=== PATIENT | male | born 2000 | race Caucasian/White ===

== ENCOUNTER 2020-01-23 15:26 | Emergency (ER) | payer OTHER ==
[~2020-01-23] VITALS: Ht 177.8 cm; Wt 136.1 kg
[~2020-01-23 15:26] MED LIST: ALBUTEROL2.5 MG/31 IH; ALBUTEROL2.5 MG/31 INH; ALBUTEROL2.5 MG/32; ALLEGRA ALLERGY60 MG PO; AMOXICILLI400 MG/5 M PO; AMOXICILLIN500 M1 PO; AZITHROMYC200 MG/52 OR; AZITHROMYCIN 2250 MG PO; NOHOMEMEDICATIONS; PREDNISONE 20 M20 M1 PO; PRELONE15 MG/5 ML PO; PROVENTIL IH; ZPAK PO
[2020-01-23 15:33] VITALS: BP 178/105
[2020-01-23] MEDS ORDERED: TRIAMCINOLONE A15 G3 TOP (15:46)
== END 2020-01-23 15:52 | disposition home or self-care (01) ==
LOC: M.ERS 15:26
DX: Z48.01 Encounter for change or removal of surgical wound dressing (principal); L30.9 Dermatitis, unspecified; J45.909 Unspecified asthma, uncomplicated